=== PATIENT | male | born 1995 | race Caucasian/White ===

== ENCOUNTER 2021-06-04 22:11 | Emergency (ER) | payer SELFPAY ==
[2021-06-05] MEDS ORDERED: METHYLPREDNISOLONE 125 MG INJ ONE (01:06)
[2021-06-05 01:13] LABS: Absolute Lymphocytes (CBC) 1.7 K/uL (0.7-4.9); Basophils % 0.5 % (0-1.3); Hematocrit 44.4 % (39.6-49.0); Lymphocytes % 27.6 % (15.3-44.8); MPV 7.2 fL (7.6-11.3); RBC Red Blood Cell Count 5.07 M/uL (4.33-5.43)
[2021-06-05 01:25] LABS: C-Reactive Protein 25.5 mg/L (<3.00); Ferritin 164.2 ng/mL (26-388); Potassium 4.2 mmol/L (3.5-5.1)
--- NOTE | 2021-06-05 02:27 | ER ---
Nurse's Notes [facility] Name: Gold De Souza Age: 26 yrs Sex: Male : 1995 Arrival Date: 06/04/2021 Time: 22:15 Bed 11 Private MD: Diagnosis: Pneumonia due to SARS-associated coronavirus Presentation: 06/04 22:30 Chief complaint: Patient states: Pt step mother stated, " I test positive 05/29 now he kg has symptoms. He was tested at [facility] today but now has worsening symptoms." Pt stated, "I'm having chest pain, SOB, fever, sore throat, nasal congestion. ". Coronavirus screen: Client denies travel out of the [place] in the last 14 days. At this time, unable to obtain information related to travel outside the [place] Client presents with at least one sign or symptom that may indicate coronavirus-19. Standard/surgical mask placed on the client. Provider contacted for isolation considerations. The client is unsure as to whether or not they have had previous COVID-19 testing. Ebola Screen: Patient negative for fever greater than or equal to 101.5 degrees Fahrenheit, and additional compatible Ebola Virus Disease symptoms Patient denies exposure to infectious person. Patient denies travel to an Ebola-affected area in the 21 days before illness onset. Initial Sepsis Screen: Does the patient meet any 2 criteria? No. Patient's initial sepsis screen is negative. Does the patient have a suspected source of infection? No. Patient's initial sepsis screen is negative. Risk Assessment: Do you want to hurt yourself or someone else? Patient reports no desire to harm self or others. Onset of symptoms was June 04, 2021. 22:30 Method Of Arrival: Ambulatory kg 22:30 Acuity: EROS 3 bb Triage Assessment: 22:36 General: Appears in no apparent distress. Behavior is calm, cooperative, appropriate kg for age, quiet. Pain: Complains of pain in anterior aspect of left upper chest and left breast Pain currently is 1 out of 10 on a pain scale. at worst was 2 out of 10 on a pain scale. level that patient reports is acceptable is 2 out of 10 on a pain scale. Quality of pain is described as sharp. Cardiovascular: Reports chest pain, shortness of breath. Respiratory: Reports shortness of breath at rest on exertion cough that is. Historical: - Allergies: 22:36 No Known Allergies; kg - Home Meds: 22:36 None [Active]; kg - PMHx: 22:36 None; kg - PSHx: 22:36 None; kg - Immunization history:: Adult Immunizations not up to date, Client reports having NOT received the Covid vaccine. - Social history:: Smoking status: Patient denies any tobacco usage or history of. - Family history:: not pertinent. - Hospitalizations: : No recent hospitalization is reported. Screenin:38 Abuse screen: Denies threats or abuse. Denies injuries from another. Nutritional kg screening: No deficits noted. Tuberculosis screening: No symptoms or risk factors identified. Fall Risk None identified. Assessment: 22:39 Pain: Pain does not radiate. Pain began gradually. kg 06/05 01:04 General: Appears in no apparent distress. Behavior is calm, cooperative. Neuro: Level bb of Consciousness is awake, alert, obeys commands, Oriented to person, place, time, situation. Cardiovascular: Capillary refill < 3 seconds Patient's skin is warm and dry. Respiratory: Respiratory effort is even, unlabored, Respiratory pattern is regular. GI: No signs and/or symptoms were reported involving the gastrointestinal system. Derm: Skin is pink, warm \\T\\ dry. 02:08 Reassessment: Patient is alert, oriented x 3, equal unlabored respirations, skin bb warm/dry/pink. pt resting quietly awaiting diagnostic results. 03:06 Reassessment: Patient is alert, oriented x 3, equal unlabored respirations, skin bb warm/dry/pink. pt verbalized understanding of and agrees to plan of care discharge instructions given pt ambulated with steady gait to [facility]. Vital Signs: 06/04 22:30 BP 131 / 87; Pulse 98; Resp 18; Temp 99.8(O); Pulse Ox 98% on R/A; Weight 81.65 kg (R); kg Height 5 ft. 10 in. (177.80 cm); Pain 11/03; 06/05 02:08 BP 135 / 76; Pulse 89; Resp 16 S; Pulse Ox 97% on R/A; bb 03:07 BP 130 / 86; Pulse 79; Resp 16 S; Pulse Ox 97% on R/A; bb 06/04 22:30 Body Mass Index 25.83 (81.65 kg, 177.80 cm) kg ED Course: 06/04 22:15 Patient arrived in ED. es 22:36 Triage completed. kg 22:36 Arm band placed on right wrist. kg 22:38 Patient has correct armband on for positive identification. kg 22:38 No provider procedures requiring assistance completed. Patient maintains SpO2 kg saturation greater than 95% on room air. 23:55 XRAY Chest (1 view) In Process Unspecified. EDMS 06/05 00:16 Pedro Luis Pacheco MD is Attending Physician. rn 00:45 Initial lab(s) drawn, by me, sent to lab. COVID swab sent to lab. Inserted saline lock: bb 18 gauge in right antecubital area, using aseptic technique. Blood collected. 01:03 Laura Schulte RN is Primary Nurse. bb 01:04 Pulse ox on. NIBP on. bb 01:40 CT Chest For PE Angio In Process Unspecified. EDMS 03:07 IV discontinued, intact, bleeding controlled, No redness/swelling at site. Pressure bb dressing applied. Administered Medications: 01:15 Drug: SOLU-Medrol (methylPrednisoLONE) 125 mg Route: IVP; Site: right antecubital; bb 02:00 Follow up: Response: No adverse reaction bb Outcome: 02:27 Discharge ordered by . rn 03:07 Discharged to home ambulatory. bb 03:07 Condition: stable 03:07 Discharge instructions given to patient, Instructed on discharge instructions, follow up and referral plans. medication usage, Demonstrated understanding of instructions, follow-up care, medications, Prescriptions given X 2. 03:08 Patient left the ED. bb Signatures: Dispatcher [employer] EDPushpa Alvarado Brenda, RN RN Pedro Luis Panchal MD MD rn Graham, Kristen, RN RN kg Corrections: (The following items were deleted from the chart) 01:03 06/04 22:30 Acuity: EROS 4 kg bb
--- NOTE | 2021-06-05 02:28 | EDPHYS ---
Physician Documentation [facility] Name: Gold De Souza Age: 26 yrs Sex: Male : 1995 Arrival Date: 06/04/2021 Time: 22:15 Bed 11 Private MD: ED Physician Pedro Luis Pacheco HPI: 06/05 00:31 This 26 yrs old Male presents to ER via Ambulatory with complaints of Fever, rn COVID SYMPTOMS, Chest Pain. 00:31 The patient reports fever, that was measured at 101 degrees Fahrenheit. Onset: The rn symptoms/episode began/occurred 2 day(s) ago. Modifying factors: The patient has had contact with sick mother. Associated signs and symptoms: Pertinent positives: chills, diarrhea, sinus congestion, Pertinent negatives: abdominal pain, altered mental status, hemoptysis. Severity of symptoms: At their worst the symptoms were mild in the emergency department the symptoms have improved. The patient has not experienced similar symptoms in the past. The patient has not recently seen a physician. Patient states 2 days of symptoms, consists of fever/chills/sinus congestion/diarrhea and fatigue. Mother tested positive for Covid and has been around him. Patient without chronic medical or lung problems. Reports felt tight left-sided chest pain earlier. Reports elevated heart rate earlier but in the setting of fever, came down with fever after Tylenol administration. Currently denies chest pain.. Historical: - Allergies: 06/04 22:36 No Known Allergies; kg - Home Meds: 22:36 None [Active]; kg - PMHx: 22:36 None; kg - PSHx: 22:36 None; kg - Immunization history:: Adult Immunizations not up to date, Client reports having NOT received the Covid vaccine. - Social history:: Smoking status: Patient denies any tobacco usage or history of. - Family history:: not pertinent. - Hospitalizations: : No recent hospitalization is reported. 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 Exam: 00:31 Constitutional: This is a well developed, well nourished patient who is awake, alert, rn and in no acute distress. Patient laughing and making jokes. Head/Face: Normocephalic, atraumatic. Eyes: Periorbital areas with no swelling, redness, or edema. ENT: No stridor Cardiovascular: Regular rate and rhythm. No pulse deficits. Respiratory: Speaking full sentences. Unlabored. No increased work of breathing, no retractions or nasal flaring. Skin: Warm, dry MS/ Extremity: Pulses equal, no cyanosis. Neuro: Awake and alert, GCS 15 Vital Signs: 06/04 22:30 BP 131 / 87; Pulse 98; Resp 18; Temp 99.8(O); Pulse Ox 98% on R/A; Weight 81.65 kg (R); kg Height 5 ft. 10 in. (177.80 cm); Pain 11/03; 06/05 02:08 BP 135 / 76; Pulse 89; Resp 16 S; Pulse Ox 97% on R/A; bb 03:07 BP 130 / 86; Pulse 79; Resp 16 S; Pulse Ox 97% on R/A; bb 06/04 22:30 Body Mass Index 25.83 (81.65 kg, 177.80 cm) kg MDM: 00:16 Patient medically screened. rn 01:25 Data interpreted: cheese tester: rate is 98 beats/min, rhythm is normal sinus rhythm, rn regular, with no ectopy, Interpretation: normal rate, normal rhythm, Pulse oximetry: on room air is 98 %. Interpretation: normal. 01:26 Test interpretation: by ED physician or midlevel provider: plain radiologic studies, rn Chest x-ray with mild bilateral interstitial infiltrate.. 02:26 Differential diagnosis: viral Infection, bronchitis, pneumonia. Data reviewed: vital rn signs, nurses notes, lab test result(s), radiologic studies, CT scan, plain films, and as a result, I will discharge patient. Counseling: I had a detailed discussion with the patient and/or guardian regarding: the historical points, exam findings, and any diagnostic results supporting the discharge/admit diagnosis, lab results, radiology results, the need for outpatient follow up, to return to the emergency department if symptoms worsen or persist or if there are any questions or concerns that arise at home. Response to treatment: the patient's symptoms have mildly improved after treatment, and as a result, I will discharge patient. Special discussion: I discussed with the patient/guardian in detail that at this point there is no indication for admission to the hospital. It is understood, however, that if the symptoms persist or worsen the patient needs to return immediately for re-evaluation. ED course: CT chest negative for PE, shows mild early Covid pneumonia, no oxygen requirement. Will DC home with return precautions.. 06/05 00:28 Order name: COVID-19 : Document "Date of Symptom Onset" if Symptomatic. rn 06/05 00:28 Order name: CBC with Diff; Complete Time: 02:25 rn 06/05 00:28 Order name: Basic Metabolic Panel; Complete Time: 02:25 rn 06/05 00:28 Order name: Ferritin; Complete Time: 02:25 rn 06/05 00:28 Order name: CRP; Complete Time: 02:25 rn 06/04 23:22 Order name: XRAY Chest (1 view) rn 06/05 00:28 Order name: IV Start; Complete Time: 01:17 rn 06/05 00:28 Order name: EKG; Complete Time: 00:28 rn 06/05 00:28 Order name: EKG - Nurse/Tech rn 06/05 00:28 Order name: CT Chest For PE Angio rn 06/05 02:16 Order name: SARS-COV-2 RT PCR; Complete Time: 02:25 EDMS 06/05 02:46 Order name: CREATININE WHOLE BLOOD EDMS Administered Medications: 01:15 Drug: SOLU-Medrol (methylPrednisoLONE) 125 mg Route: IVP; Site: right antecubital; bb 02:00 Follow up: Response: No adverse reaction bb Disposition Summary: 06/05/21 02:27 Discharge Ordered Location: Home rn Problem: new rn Symptoms: have improved rn Condition: Stable rn Diagnosis - Pneumonia due to SARS-associated coronavirus rn Followup: rn - With: Private Physician - When: As needed - Reason: Recheck today's complaints, Re-evaluation by your physician Discharge Instructions: - Discharge Summary Sheet rn - COVID-19 rn - COVID-19 Frequently Asked Questions rn - 10 Things You Can Do to Manage Your COVID-19 Symptoms at Home - [facility] rn Forms: - Medication Reconciliation Form rn - Thank You Letter rn - 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 - Prescription Opioid Use rn - Work release form bb Prescriptions: - ivermectin 3 mg Oral tablet - take 4 tablet by ORAL route once daily for 5 days; 20 tablet; Refills: 0, rn Product Selection Permitted - Prednisone 20 mg Oral Tablet - take 1 tablet by ORAL route as directed for 10 days Take 2 tablets by mouth rn once daily for 5 days, followed by 1 tablet by mouth once daily for 5 days; 15 tablet; Refills: 0, Product Selection Permitted Signatures: Dispatcher [employer] Laura Lam RN RN bb Pedro Luis Pacheco MD MD rn Graham, Kristen, RN RN kg Corrections: (The following items were deleted from the chart) 01:20 00:28 CORONAVIRUS ordered. EDKY EDMS
[2021-06-05 03:15] VITALS: TEMP 99.8
[2021-06-05 03:16] VITALS: O2SAT 97
[2021-06-05 03:19] VITALS: BP 130/86
--- NOTE | 2021-06-05 07:30 | RAD REPORT ---
EXAM DESCRIPTION: RAD - Chest Single View - 06/04/2021 11:55 pm CLINICAL HISTORY: COUGH COMPARISON: No comparisons FINDINGS: No evidence of edema or pneumonia. The heart size is within normal limits.No acute osseous abnormality. No significant pleural effusions or pneumothorax. IMPRESSION: No acute cardiopulmonary disease.
--- NOTE | 2021-06-05 10:03 | RAD REPORT ---
EXAM DESCRIPTION: CT - Chest For Pe Angio - 06/05/2021 6:31 am CLINICAL HISTORY: CHEST PAIN COMPARISON: None. TECHNIQUE: Chest CTA axial images acquired with IV contrast. Coronal and sagittal CTA MIPs and MPRs created. Exam performed according to departmental dose-optimization program which includes automated exposure control, adjustment of mA and/or kV according to patient size, and/or use of iterative recon struction technique. FINDINGS: Heart size normal. No pericardial effusion. Thoracic aorta unremarkable without evidence of dissection, aneurysm, or atherosclerotic plaque. No evidence of pulmonary embolism. Central tracheobronchial tree unremarkable. Small anterior left basilar airspace lung opacity. No pleural effusion or pneumothorax. Multiple small Schmorl nodes throughout thoracic spine. IMPRESSION: 1. Small anterior left basilar airspace lung opacity. This more likely represents infection (early COVID not ruled out). 2. No CT evidence of pulmonary embolism. Electronically signed by: Deshawn Ramirez MD 06/05/2021 2:03 AM CDT Due to temporary technical issues with the PACS/Fluency reporting system, reports are being signed by the in house radiologist without review as a courtesy to ensure prompt reporting. The interpreting r adiologist is fully responsible for the content of the report.
== END 2021-06-05 03:08 | disposition home or self-care (01) ==
LOC: ER 22:11
DX: U07.1 COVID-19 (principal); J12.82 Pneumonia due to coronavirus disease 2019
CPT/HCPCS: 36415; 71045; 71275; 80048; 82565; 82728; 85025; 86140; 96374; 99284; J2930; Q9967; U0003